=== PATIENT | male | born 1990 | race Caucasian/White ===

== ENCOUNTER 2017-09-08 20:50 | Inpatient (IN) | payer MEDICAID ==
[~2017-09-08] VITALS: Ht 172.7 cm; Wt 52.6 kg
[2017-09-08 21:41] LABS: microscopic required? NO
[2017-09-08 21:45] LABS: PLATELET COUNT 391 x10^3mcL (130-400); RED CELL DISTRIBUTION WIDTH 12.1 % (11.5-14.5)
[2017-09-08 21:48] LABS: BASOPHIL % 2.3 % (0-2)
[2017-09-08 21:50] LABS: UA SPECIFIC GRAVITY <=1.005 (1.005-1.035); urine erythrocyte NEGATIVE (NEGATIVE)
[2017-09-08 21:56] LABS: AMPHETAMINE QUAL UR NONE DETECTED (NEG <=1000)
[2017-09-08 22:09] LABS: ALKALINE PHOSPHATASE 169 U/L (46-116); ALT/SGPT 17 U/L (16-63); AST/SGOT 12 U/L (15-37); BILIRUBIN TOTAL 0.22 mg/dL (0.20-1.00); CALCIUM 8.2 mg/dL (8.5-10.1); CARBON DIOXIDE 25.9 mmol/L (21-32); CHLORIDE SERUM 98 mmol/L (98-107); CREATININE SERUM 0.9 mg/dL (0.7-1.3); GFR1 > 60 mL/min; POTASSIUM SERUM 3.5 mmol/L (3.5-5.1); SODIUM SERUM 128 mmol/L (136-145); TOTAL PROTEIN, SERUM 6.4 g/dL (6.4-8.2)
[2017-09-08 22:11] LABS: ALBUMIN 2.5 g/dL (3.4-5.0)
[2017-09-08 22:12] LABS: GLUCOSE SERUM 558 mg/dL (74-106)
[2017-09-08] MEDS ORDERED: HUMALOG100 U/ML SC (23:38)
[2017-09-09 00:41] VITALS: BP 129/87
[2017-09-09 02:26] LABS: PHOSPHOROUS 4.5 mg/dL (2.5-4.9)
[2017-09-09 02:40] LABS: FREE T4 0.91 ng/dL (0.76-1.46); FREE THYROXINE INDEX 2.1 ug/dL (1.4-4.5); T4(THYROXINE) 5.3 ug/dL (4.7-13.3)
[2017-09-09 03:09] LABS: T3 TOTAL 0.5 ng/mL
[2017-09-09 04:56] VITALS: BP 133/83
[2017-09-09 06:55] LABS: IRON 93 ug/dL (65-170)
[2017-09-09 06:57] LABS: TOTAL IRON BINDING CAPACITY 218 ug/dL (250-450)
[2017-09-09 07:49] LABS: RED BLOOD CELLS 3.94 M/mm3 (4.52-5.90)
[2017-09-09 08:55] VITALS: BP 124/68
[2017-09-09 12:23] VITALS: BP 123/81
[2017-09-09 16:16] VITALS: BP 128/93
[2017-09-09 20:37] VITALS: BP 119/76
[2017-09-10 05:37] VITALS: BP 120/72
[2017-09-10 06:21] LABS: CALCIUM 8.5 mg/dL (8.5-10.1); CARBON DIOXIDE 28.1 mmol/L (21-32); CHLORIDE SERUM 103 mmol/L (98-107); CREATININE SERUM 0.6 mg/dL (0.7-1.3); GFR1 > 60 mL/min; GLUCOSE SERUM 236 mg/dL (74-106); PHOSPHOROUS 4.2 mg/dL (2.5-4.9); POTASSIUM SERUM 3.9 mmol/L (3.5-5.1); SODIUM SERUM 137 mmol/L (136-145)
[2017-09-10 06:22] LABS: BASOPHIL % 0.4 % (0-2); PLATELET COUNT 380 x10^3mcL (130-400); RED CELL DISTRIBUTION WIDTH 12.2 % (11.5-14.5)
[2017-09-10 09:07] VITALS: BP 119/82
[2017-09-10 14:05] VITALS: BP 123/73
[2017-09-10 17:07] VITALS: BP 126/70
[2017-09-10 22:10] VITALS: BP 116/72
[2017-09-11 05:50] VITALS: BP 122/74
[2017-09-11 06:22] LABS: BASOPHIL % 0.5 % (0-2); RED CELL DISTRIBUTION WIDTH 12.1 % (11.5-14.5)
[2017-09-11 06:38] LABS: PLATELET COUNT 414 x10^3mcL (130-400)
[2017-09-11 06:46] LABS: CALCIUM 8.3 mg/dL (8.5-10.1); CARBON DIOXIDE 26.2 mmol/L (21-32); CHLORIDE SERUM 107 mmol/L (98-107); CREATININE SERUM 0.5 mg/dL (0.7-1.3); GFR1 > 60 mL/min; GLUCOSE SERUM 193 mg/dL (74-106); PHOSPHOROUS 4.5 mg/dL (2.5-4.9); POTASSIUM SERUM 3.9 mmol/L (3.5-5.1); SODIUM SERUM 138 mmol/L (136-145)
[2017-09-11 14:25] VITALS: BP 148/88
[2017-09-11 17:50] VITALS: BP 125/79
[2017-09-11 20:55] VITALS: BP 127/82
[2017-09-12 05:47] VITALS: BP 127/81
[2017-09-12 06:22] LABS: BASOPHIL % 0.5 % (0-2)
[2017-09-12 06:26] LABS: PLATELET COUNT 406 x10^3mcL (130-400)
[2017-09-12 06:31] LABS: CALCIUM 8.4 mg/dL (8.5-10.1); CARBON DIOXIDE 28.6 mmol/L (21-32); CHLORIDE SERUM 105 mmol/L (98-107); CREATININE SERUM 0.4 mg/dL (0.7-1.3); GFR1 > 60 mL/min; GLUCOSE SERUM 225 mg/dL (74-106); PHOSPHOROUS 4.4 mg/dL (2.5-4.9); POTASSIUM SERUM 3.7 mmol/L (3.5-5.1); SODIUM SERUM 138 mmol/L (136-145)
[2017-09-12 09:38] VITALS: BP 123/81
[2017-09-12 13:00] VITALS: BP 144/71
[2017-09-12 17:41] VITALS: BP 137/91
[2017-09-13 06:08] LABS: BASOPHIL % 0.9 % (0-2); RED CELL DISTRIBUTION WIDTH 12.5 % (11.5-14.5)
[2017-09-13 06:15] VITALS: BP 129/88
[2017-09-13 06:24] LABS: PLATELET COUNT 441 x10^3mcL (130-400)
[2017-09-13 06:37] LABS: CALCIUM 8.3 mg/dL (8.5-10.1); CARBON DIOXIDE 30.2 mmol/L (21-32); CHLORIDE SERUM 104 mmol/L (98-107); CREATININE SERUM 0.6 mg/dL (0.7-1.3); GFR1 > 60 mL/min; GLUCOSE SERUM 213 mg/dL (74-106); PHOSPHOROUS 4.7 mg/dL (2.5-4.9); POTASSIUM SERUM 3.9 mmol/L (3.5-5.1); SODIUM SERUM 137 mmol/L (136-145)
[2017-09-13 08:00] VITALS: BP 130/86
[2017-09-13 10:20] VITALS: Ht 172.7 cm; Wt 52.6 kg
[2017-09-13 12:05] VITALS: BP 114/76
[2017-09-13 16:38] VITALS: BP 135/88
[2017-09-13 21:38] VITALS: BP 131/84
[2017-09-14 08:23] VITALS: BP 129/78
[2017-09-14 08:36] LABS: CALCIUM 8.9 mg/dL (8.5-10.1); CHLORIDE SERUM 105 mmol/L (98-107); CREATININE SERUM 0.5 mg/dL (0.7-1.3); GFR1 > 60 mL/min; GLUCOSE SERUM 118 mg/dL (74-106); POTASSIUM SERUM 4.1 mmol/L (3.5-5.1); SODIUM SERUM 139 mmol/L (136-145)
[2017-09-14 12:16] VITALS: BP 123/80
[2017-09-14 13:18] LABS: APPEARANCE CSF CLEAR; COLOR CSF COLORLESS; RBC CSF 0 /cumm (0); WBC CSF 2 /cumm (0-5)
[2017-09-14 13:20] LABS: TOTAL PROTEIN CSF 30 mg/dL (15-45)
[2017-09-14 16:26] VITALS: BP 127/81
[2017-09-14 21:09] VITALS: BP 127/65
[2017-09-15 05:25] VITALS: BP 120/74
[2017-09-15 06:08] LABS: BASOPHIL % 0.8 % (0-2); RED CELL DISTRIBUTION WIDTH 12.3 % (11.5-14.5)
[2017-09-15 06:35] LABS: PLATELET COUNT 528 x10^3mcL (130-400)
[2017-09-15 06:47] LABS: CALCIUM 9.3 mg/dL (8.5-10.1); CARBON DIOXIDE 27.2 mmol/L (21-32); CHLORIDE SERUM 104 mmol/L (98-107); CREATININE SERUM 0.6 mg/dL (0.7-1.3); GFR1 > 60 mL/min; GLUCOSE SERUM 153 mg/dL (74-106); MAGNESIUM 2.1 mg/dL (1.8-2.4); PHOSPHOROUS 5.3 mg/dL (2.5-4.9); POTASSIUM SERUM 4.1 mmol/L (3.5-5.1); SODIUM SERUM 141 mmol/L (136-145)
[2017-09-15 09:01] VITALS: BP 127/83
[2017-09-15 11:56] VITALS: BP 119/80
[2017-09-15 16:39] VITALS: BP 128/79
[2017-09-15 22:20] VITALS: BP 110/70
[2017-09-16 05:31] VITALS: BP 116/74
[2017-09-16 06:13] LABS: BASOPHIL % 0.6 % (0-2); RED CELL DISTRIBUTION WIDTH 12.4 % (11.5-14.5)
[2017-09-16 06:42] LABS: CALCIUM 9.3 mg/dL (8.5-10.1); CARBON DIOXIDE 28.8 mmol/L (21-32); CHLORIDE SERUM 102 mmol/L (98-107); CREATININE SERUM 0.6 mg/dL (0.7-1.3); GFR1 > 60 mL/min; GLUCOSE SERUM 154 mg/dL (74-106); POTASSIUM SERUM 4.6 mmol/L (3.5-5.1); SODIUM SERUM 138 mmol/L (136-145)
[2017-09-16 06:47] LABS: PLATELET COUNT 526 x10^3mcL (130-400)
[2017-09-16 09:40] VITALS: BP 120/75
[2017-09-16 13:33] VITALS: BP 117/72
[2017-09-16 17:53] VITALS: BP 120/65
[2017-09-16 21:51] VITALS: BP 112/73
[2017-09-17 05:48] VITALS: BP 119/75
[2017-09-17 06:06] LABS: BASOPHIL % 0.5 % (0-2); RED CELL DISTRIBUTION WIDTH 12.3 % (11.5-14.5)
[2017-09-17 06:12] LABS: CALCIUM 9.3 mg/dL (8.5-10.1); CHLORIDE SERUM 100 mmol/L (98-107); CREATININE SERUM 0.6 mg/dL (0.7-1.3); GFR1 > 60 mL/min; GLUCOSE SERUM 184 mg/dL (74-106); PHOSPHOROUS 4.8 mg/dL (2.5-4.9); SODIUM SERUM 130 mmol/L (136-145)
[2017-09-17 06:29] LABS: PLATELET COUNT 535 x10^3mcL (130-400)
[2017-09-17 09:23] VITALS: BP 99/56
[2017-09-17 14:22] VITALS: BP 106/63
[2017-09-17 17:34] VITALS: BP 106/62
[2017-09-17 20:38] VITALS: BP 101/56; BP 125/70
[2017-09-18 06:18] VITALS: BP 99/62
[2017-09-18 07:17] LABS: BASOPHIL % 0.7 % (0-2); RED CELL DISTRIBUTION WIDTH 12.5 % (11.5-14.5)
[2017-09-18 07:24] LABS: PLATELET COUNT 486 x10^3mcL (130-400)
[2017-09-18 07:30] LABS: CALCIUM 9.1 mg/dL (8.5-10.1); CARBON DIOXIDE 29.4 mmol/L (21-32); CHLORIDE SERUM 103 mmol/L (98-107); CREATININE SERUM 0.6 mg/dL (0.7-1.3); GFR1 > 60 mL/min; GLUCOSE SERUM 185 mg/dL (74-106); MAGNESIUM 2.1 mg/dL (1.8-2.4); PHOSPHOROUS 4.8 mg/dL (2.5-4.9); POTASSIUM SERUM 4.2 mmol/L (3.5-5.1); SODIUM SERUM 135 mmol/L (136-145)
[2017-09-18 09:06] VITALS: BP 105/65
[2017-09-18 17:29] VITALS: BP 109/70
[2017-09-18 20:23] VITALS: BP 116/77
[2017-09-19 05:10] VITALS: BP 98/54
[2017-09-19 06:52] LABS: BASOPHIL % 0.9 % (0-2); RED CELL DISTRIBUTION WIDTH 12.4 % (11.5-14.5)
[2017-09-19 07:00] LABS: PLATELET COUNT 495 x10^3mcL (130-400)
[2017-09-19 07:22] LABS: CALCIUM 8.8 mg/dL (8.5-10.1); CARBON DIOXIDE 26.9 mmol/L (21-32); CHLORIDE SERUM 104 mmol/L (98-107); CREATININE SERUM 0.7 mg/dL (0.7-1.3); GFR1 > 60 mL/min; GLUCOSE SERUM 180 mg/dL (74-106); PHOSPHOROUS 4.9 mg/dL (2.5-4.9); SODIUM SERUM 138 mmol/L (136-145)
[2017-09-19 08:55] VITALS: BP 127/61
[2017-09-19 17:04] VITALS: BP 132/66
[2017-09-19 21:17] VITALS: BP 136/77
[2017-09-20 05:29] VITALS: BP 107/71
[2017-09-20 06:11] LABS: BASOPHIL % 0.6 % (0-2); RED CELL DISTRIBUTION WIDTH 13.1 % (11.5-14.5)
[2017-09-20 06:35] LABS: CALCIUM 9.4 mg/dL (8.5-10.1); CARBON DIOXIDE 29.6 mmol/L (21-32); CHLORIDE SERUM 103 mmol/L (98-107); CREATININE SERUM 0.7 mg/dL (0.7-1.3); GFR1 > 60 mL/min; GLUCOSE SERUM 149 mg/dL (74-106); POTASSIUM SERUM 4.8 mmol/L (3.5-5.1); SODIUM SERUM 136 mmol/L (136-145)
[2017-09-20 07:12] LABS: PLATELET COUNT 533 x10^3mcL (130-400)
[2017-09-20 09:50] VITALS: BP 124/75
[2017-09-20 16:40] VITALS: BP 111/60
[2017-09-20 22:06] VITALS: BP 121/65
[2017-09-21 05:59] VITALS: BP 130/76
[2017-09-21 09:55] VITALS: BP 128/69
[2017-09-21 17:48] VITALS: BP 117/71
[2017-09-21 21:22] VITALS: BP 137/82
[2017-09-22 06:10] VITALS: BP 131/79
[2017-09-22 09:32] VITALS: BP 126/67
[2017-09-22 12:41] VITALS: BP 129/70
[2017-09-22 18:20] VITALS: BP 130/83
[2017-09-22 21:14] VITALS: BP 130/73
[2017-09-23 05:41] VITALS: BP 121/82
[2017-09-23 06:20] LABS: BASOPHIL % 0.5 % (0-2); RED CELL DISTRIBUTION WIDTH 13.1 % (11.5-14.5)
[2017-09-23 06:30] LABS: CALCIUM 8.7 mg/dL (8.5-10.1); CARBON DIOXIDE 25.3 mmol/L (21-32); CHLORIDE SERUM 101 mmol/L (98-107); CREATININE SERUM 0.8 mg/dL (0.7-1.3); GFR1 > 60 mL/min; GLUCOSE SERUM 306 mg/dL (74-106); MAGNESIUM 1.9 mg/dL (1.8-2.4); PHOSPHOROUS 4.3 mg/dL (2.5-4.9); POTASSIUM SERUM 4.3 mmol/L (3.5-5.1); SODIUM SERUM 136 mmol/L (136-145)
[2017-09-23 06:31] LABS: PLATELET COUNT 431 x10^3mcL (130-400)
[2017-09-23 08:43] VITALS: BP 138/81
[2017-09-23 14:00] VITALS: BP 139/84
[2017-09-23 18:15] VITALS: BP 123/69
[2017-09-23 21:14] VITALS: BP 133/78
[2017-09-24 04:57] VITALS: BP 131/76
[2017-09-24 06:07] LABS: BASOPHIL % 0.6 % (0-2); RED CELL DISTRIBUTION WIDTH 13.3 % (11.5-14.5)
[2017-09-24 06:13] LABS: CALCIUM 9.4 mg/dL (8.5-10.1); CARBON DIOXIDE 25.7 mmol/L (21-32); CHLORIDE SERUM 101 mmol/L (98-107); CREATININE SERUM 0.6 mg/dL (0.7-1.3); GFR1 > 60 mL/min; GLUCOSE SERUM 239 mg/dL (74-106); POTASSIUM SERUM 4.4 mmol/L (3.5-5.1); SODIUM SERUM 135 mmol/L (136-145)
[2017-09-24 06:48] LABS: PLATELET COUNT 454 x10^3mcL (130-400)
[2017-09-24 09:56] VITALS: BP 129/73
[2017-09-24 13:52] VITALS: BP 128/70
[2017-09-24 16:55] VITALS: BP 109/72
[2017-09-24 21:14] VITALS: BP 126/71
[2017-09-25 05:52] VITALS: BP 138/65
[2017-09-25 06:02] LABS: BASOPHIL % 0.8 % (0-2); RED CELL DISTRIBUTION WIDTH 13.2 % (11.5-14.5)
[2017-09-25 06:20] LABS: CALCIUM 9.4 mg/dL (8.5-10.1); CARBON DIOXIDE 29.6 mmol/L (21-32); CHLORIDE SERUM 104 mmol/L (98-107); CREATININE SERUM 0.5 mg/dL (0.7-1.3); GFR1 > 60 mL/min; GLUCOSE SERUM 87 mg/dL (74-106); MAGNESIUM 2.2 mg/dL (1.8-2.4); PHOSPHOROUS 5.5 mg/dL (2.5-4.9); POTASSIUM SERUM 3.8 mmol/L (3.5-5.1); SODIUM SERUM 140 mmol/L (136-145)
[2017-09-25 06:24] LABS: PLATELET COUNT 420 x10^3mcL (130-400)
[2017-09-25 09:58] VITALS: BP 114/62
[2017-09-25 13:30] VITALS: BP 138/67
[2017-09-25 17:36] VITALS: BP 129/78
[2017-09-25 21:16] VITALS: BP 126/78
[2017-09-26 04:45] VITALS: BP 125/69
[2017-09-26 09:12] VITALS: BP 141/94
[2017-09-26 12:59] VITALS: BP 124/82
[2017-09-26 17:07] VITALS: BP 125/43
[2017-09-26 21:52] VITALS: BP 136/82
[2017-09-27 05:44] VITALS: BP 136/80
[2017-09-27 08:41] VITALS: BP 142/85
[2017-09-27 13:06] VITALS: BP 140/82
[2017-09-27 17:46] VITALS: BP 136/83
[2017-09-27 20:34] VITALS: BP 128/86
[2017-09-28 05:45] VITALS: BP 123/56
[2017-09-28 06:05] LABS: BASOPHIL % 0.4 % (0-2); PLATELET COUNT 350 x10^3mcL (130-400); RED CELL DISTRIBUTION WIDTH 13.4 % (11.5-14.5)
[2017-09-28 06:40] LABS: CARBON DIOXIDE 27.4 mmol/L (21-32); CHLORIDE SERUM 106 mmol/L (98-107); CREATININE SERUM 0.6 mg/dL (0.7-1.3); GFR1 > 60 mL/min; GLUCOSE SERUM 135 mg/dL (74-106); MAGNESIUM 2.1 mg/dL (1.8-2.4); PHOSPHOROUS 3.5 mg/dL (2.5-4.9); SODIUM SERUM 141 mmol/L (136-145)
[2017-09-28 09:05] VITALS: BP 113/56
[2017-09-28 17:30] VITALS: BP 139/75
[2017-09-28 21:26] VITALS: BP 132/67
[2017-09-29 05:35] VITALS: BP 143/80
[2017-09-29 06:18] LABS: BASOPHIL % 0.4 % (0-2); PLATELET COUNT 301 x10^3mcL (130-400); RED CELL DISTRIBUTION WIDTH 13.7 % (11.5-14.5)
[2017-09-29 06:21] LABS: CALCIUM 8.8 mg/dL (8.5-10.1); CARBON DIOXIDE 27.2 mmol/L (21-32); CHLORIDE SERUM 101 mmol/L (98-107); CREATININE SERUM 0.7 mg/dL (0.7-1.3); GFR1 > 60 mL/min; GLUCOSE SERUM 332 mg/dL (74-106); POTASSIUM SERUM 4.3 mmol/L (3.5-5.1); SODIUM SERUM 135 mmol/L (136-145)
[2017-09-29 08:55] VITALS: BP 149/85
[2017-09-29 16:50] VITALS: BP 135/81
[2017-09-29 21:23] VITALS: BP 114/67
[2017-09-30 05:14] VITALS: BP 111/56
[2017-09-30 06:17] LABS: CALCIUM 8.9 mg/dL (8.5-10.1); CARBON DIOXIDE 25.7 mmol/L (21-32); CHLORIDE SERUM 105 mmol/L (98-107); CREATININE SERUM 0.6 mg/dL (0.7-1.3); GFR1 > 60 mL/min; GLUCOSE SERUM 232 mg/dL (74-106); POTASSIUM SERUM 4.1 mmol/L (3.5-5.1); SODIUM SERUM 138 mmol/L (136-145)
[2017-09-30 09:34] VITALS: BP 142/79
[2017-09-30 13:28] VITALS: BP 135/83
[2017-09-30 17:26] VITALS: BP 99/54
[2017-09-30 21:56] VITALS: BP 134/84
[2017-10-01 05:59] VITALS: BP 123/84
[2017-10-01 06:29] LABS: CALCIUM 8.7 mg/dL (8.5-10.1); CARBON DIOXIDE 27.2 mmol/L (21-32); CHLORIDE SERUM 100 mmol/L (98-107); CREATININE SERUM 0.7 mg/dL (0.7-1.3); GFR1 > 60 mL/min; GLUCOSE SERUM 308 mg/dL (74-106); POTASSIUM SERUM 4.3 mmol/L (3.5-5.1); SODIUM SERUM 136 mmol/L (136-145)
[2017-10-01 09:58] VITALS: BP 142/65
[2017-10-01 17:15] VITALS: BP 144/86
[2017-10-01 20:35] VITALS: BP 157/85
[2017-10-02 05:34] VITALS: BP 122/69
[2017-10-02 06:29] LABS: CALCIUM 9.5 mg/dL (8.5-10.1); CARBON DIOXIDE 30.7 mmol/L (21-32); CHLORIDE SERUM 101 mmol/L (98-107); CREATININE SERUM 0.6 mg/dL (0.7-1.3); GFR1 > 60 mL/min; GLUCOSE SERUM 222 mg/dL (74-106); POTASSIUM SERUM 4.3 mmol/L (3.5-5.1); SODIUM SERUM 139 mmol/L (136-145)
[2017-10-02 09:40] VITALS: BP 131/69
[2017-10-02 17:38] VITALS: BP 128/68
[2017-10-02 20:39] VITALS: BP 139/78
[2017-10-03 05:34] VITALS: BP 139/77
[2017-10-03 09:56] VITALS: BP 133/81
[2017-10-03 16:58] VITALS: BP 153/92
[2017-10-03 20:56] VITALS: BP 148/84
[2017-10-04 05:18] VITALS: BP 136/74
[2017-10-04 09:40] VITALS: BP 153/96
[2017-10-04 21:29] VITALS: BP 150/92
[2017-10-05 04:56] VITALS: BP 145/91
[2017-10-05 06:07] LABS: BASOPHIL % 0.6 % (0-2); RED CELL DISTRIBUTION WIDTH 13.7 % (11.5-14.5)
[2017-10-05 06:15] LABS: CALCIUM 9.5 mg/dL (8.5-10.1); CARBON DIOXIDE 30.8 mmol/L (21-32); CHLORIDE SERUM 98 mmol/L (98-107); CREATININE SERUM 0.8 mg/dL (0.7-1.3); GFR1 > 60 mL/min; GLUCOSE SERUM 349 mg/dL (74-106); MAGNESIUM 2.2 mg/dL (1.8-2.4); PHOSPHOROUS 4.7 mg/dL (2.5-4.9); POTASSIUM SERUM 4.5 mmol/L (3.5-5.1); SODIUM SERUM 135 mmol/L (136-145)
[2017-10-05 06:55] LABS: PLATELET COUNT 482 x10^3mcL (130-400)
[2017-10-05 09:14] VITALS: BP 141/91
[2017-10-05 13:11] VITALS: BP 152/100
[2017-10-05 17:17] VITALS: BP 120/68
[2017-10-05 22:08] VITALS: BP 139/79
[2017-10-06 05:39] VITALS: BP 115/65
[2017-10-06 06:38] LABS: BASOPHIL % 0.4 % (0-2); RED CELL DISTRIBUTION WIDTH 13.8 % (11.5-14.5)
[2017-10-06 06:44] LABS: CALCIUM 9.2 mg/dL (8.5-10.1); CARBON DIOXIDE 31.4 mmol/L (21-32); CHLORIDE SERUM 98 mmol/L (98-107); CREATININE SERUM 0.9 mg/dL (0.7-1.3); GFR1 > 60 mL/min; GLUCOSE SERUM 422 mg/dL (74-106); POTASSIUM SERUM 4.9 mmol/L (3.5-5.1); SODIUM SERUM 134 mmol/L (136-145)
[2017-10-06 06:45] LABS: PLATELET COUNT 506 x10^3mcL (130-400)
[2017-10-06 09:18] VITALS: BP 143/86
[2017-10-06 18:48] VITALS: BP 146/89
[2017-10-06 22:39] VITALS: BP 132/73
[2017-10-07 05:58] VITALS: BP 129/73
[2017-10-07 09:12] VITALS: BP 132/70
[2017-10-07 17:07] VITALS: BP 157/92
[2017-10-07 21:47] VITALS: BP 137/78
[2017-10-08 04:58] VITALS: BP 128/77
[2017-10-08 09:34] VITALS: BP 116/68
[2017-10-08 17:11] VITALS: BP 138/90
[2017-10-08 20:51] VITALS: BP 133/92
[2017-10-09 06:15] VITALS: BP 126/84
[2017-10-09 10:14] VITALS: BP 149/98
[2017-10-09 17:38] VITALS: BP 118/71
== END 2017-10-09 20:32 | disposition left against medical advice (07) | DRG 50 ==
LOC: ED 20:50 → DU 23:48 → MU 23:48 → DU 09-09 00:41 → MU 09-17 17:09 → DU 09-22 16:16 → MU 09-27 18:06
PROVIDERS: Emergency Medicine; Family Medicine; Family Medicine Sports Medicine; ADMIT Family Medicine
PROC: 009U3ZX Drainage of Spinal Canal, Percutaneous Approach, Diagnostic (ICD-10-PCS; principal; 2017-09-14)
DX: B00.4 Herpesviral encephalitis (principal); N17.0 Acute kidney failure with tubular necrosis; E43 Unspecified severe protein-calorie malnutrition; E87.2 Acidosis; D68.69 Other thrombophilia; R78.81 Bacteremia; R56.9 Unspecified convulsions; E10.65 Type 1 diabetes mellitus with hyperglycemia; E87.1 Hypo-osmolality and hyponatremia; E83.51 Hypocalcemia; F25.0 Schizoaffective disorder, bipolar type; F15.251 Other stimulant dependence with stimulant-induced psychotic disorder with hallucinations; F12.251 Cannabis dependence with psychotic disorder with hallucinations; L05.01 Pilonidal cyst with abscess; T82.7XXA Infection and inflammatory reaction due to other cardiac and vascular devices, implants and grafts, initial encounter; L03.114 Cellulitis of left upper limb; B95.61 Methicillin susceptible Staphylococcus aureus infection as the cause of diseases classified elsewhere; D63.8 Anemia in other chronic diseases classified elsewhere; E78.2 Mixed hyperlipidemia; E86.0 Dehydration; F17.210 Nicotine dependence, cigarettes, uncomplicated; F10.20 Alcohol dependence, uncomplicated; Z68.1 Body mass index [BMI] 19.9 or less, adult; Z79.4 Long term (current) use of insulin; Z91.14 Patient's other noncompliance with medication regimen; Z59.0 Homelessness; Y84.8 Other medical procedures as the cause of abnormal reaction of the patient, or of later complication, without mention of misadventure at the time of the procedure; Y92.230 Patient room in hospital as the place of occurrence of the external cause
CPT/HCPCS: 62272; 82962; 83880; 84439; 86788; 86789; 90658; A9577; G0480; J0133; J0694; J0696; J1100; J1200; J1815; J1885; J2060; J2405; J3411; J3490; J7030; J7040; J7050; Q0092; Q9967

== ENCOUNTER 2017-10-11 18:19 | Observation (INO) | payer OTHER ==
[~2017-10-11] VITALS: Ht 172.7 cm; Wt 66.4 kg
[~2017-10-11 18:19] MED LIST: HUMALOG100 U/ML SC
[2017-10-11 19:15] LABS: BASOPHIL % 0.4 % (0-2); RED CELL DISTRIBUTION WIDTH 13.8 % (11.5-14.5)
[2017-10-11 19:30] LABS: PLATELET COUNT 523 x10^3mcL (130-400)
[2017-10-11 19:38] LABS: FREE T4 1.09 ng/dL (0.76-1.46); FREE THYROXINE INDEX 2.2 ug/dL (1.4-4.5); T4(THYROXINE) 5.7 ug/dL (4.7-13.3)
[2017-10-11 19:41] LABS: T3 TOTAL 1.06 ng/mL
[2017-10-11 19:44] LABS: ALBUMIN 3.3 g/dL (3.4-5.0); ALKALINE PHOSPHATASE 133 U/L (46-116); ALT/SGPT 47 U/L (16-63); AST/SGOT 18 U/L (15-37); BILIRUBIN TOTAL 0.23 mg/dL (0.20-1.00); CALCIUM 8.7 mg/dL (8.5-10.1); CARBON DIOXIDE 25.3 mmol/L (21-32); CHLORIDE SERUM 97 mmol/L (98-107); CK-MB < 0.5 ng/mL (0-3.6); CREATINE KINASE 47 U/L (39-308); GFR1 > 60 mL/min; POTASSIUM SERUM 4.6 mmol/L (3.5-5.1); SODIUM SERUM 132 mmol/L (136-145); TOTAL PROTEIN, SERUM 7.7 g/dL (6.4-8.2)
[2017-10-11 19:47] LABS: GLUCOSE SERUM 527 mg/dL (74-106)
[2017-10-11 19:48] LABS: C REACTIVE PROTEIN 0.2 mg/dL (<=0.9)
[2017-10-11 20:06] LABS: microscopic required? NO
[2017-10-11 20:18] LABS: UA SPECIFIC GRAVITY 1.015 (1.005-1.035); urine erythrocyte NEGATIVE (NEGATIVE)
[2017-10-11 20:24] LABS: ERYTHROCYTE SED RATE 41 mm/hr (0-15)
[2017-10-11 20:27] LABS: AMPHETAMINE QUAL UR NONE DETECTED (NEG <=1000)
[2017-10-11] MEDS ORDERED: LANTUS SOLOS100 U/M1 (21:05)
[2017-10-11 21:35] VITALS: BP 108/55
[2017-10-11 21:39] VITALS: BP 108/85
[2017-10-11 21:53] LABS: MAGNESIUM 2.2 mg/dL (1.8-2.4); PHOSPHOROUS 4.6 mg/dL (2.5-4.9)
[2017-10-12 05:37] VITALS: BP 99/54
[2017-10-12 07:02] LABS: BASOPHIL % 0.7 % (0-2); RED CELL DISTRIBUTION WIDTH 13.5 % (11.5-14.5)
[2017-10-12 07:03] LABS: PLATELET COUNT 460 x10^3mcL (130-400)
[2017-10-12 07:17] LABS: CALCIUM 8.6 mg/dL (8.5-10.1); CARBON DIOXIDE 26.4 mmol/L (21-32); CHLORIDE SERUM 109 mmol/L (98-107); CREATININE SERUM 0.5 mg/dL (0.7-1.3); GFR1 > 60 mL/min; GLUCOSE SERUM 110 mg/dL (74-106); POTASSIUM SERUM 3.5 mmol/L (3.5-5.1); SODIUM SERUM 141 mmol/L (136-145)
[2017-10-12 07:39] VITALS: BP 116/68
[2017-10-12 16:57] VITALS: BP 97/47
[2017-10-12] MEDS ORDERED: FER300 PO (19:05)
[2017-10-12] MEDS ORDERED: BG FS (20:45)
[2017-10-12] MEDS ORDERED: LEVEMIR100 U/M1 SQ (20:45)
[2017-10-12] MEDS ORDERED: HUMULIN R100 U/1 M1 SC (21:05)
[2017-10-12] MEDS ORDERED: ABILIFY5 M1 PO (21:06)
[2017-10-12] MEDS ORDERED: QUETIAPINE FUMA25 M1 PO (21:06)
== END 2017-10-12 20:40 | disposition left against medical advice (07) | DRG 420 ==
LOC: ED 18:19 → MU 20:41 → DU 20:41 → EDBEDREQ 20:42 → DU 21:22 → MU 10-12 11:03
PROVIDERS: Specialist; ADMIT Family Medicine Sports Medicine
DX: E11.00 Type 2 diabetes mellitus with hyperosmolarity without nonketotic hyperglycemic-hyperosmolar coma (NKHHC) (principal); N17.0 Acute kidney failure with tubular necrosis; D68.69 Other thrombophilia; E44.0 Moderate protein-calorie malnutrition; F20.9 Schizophrenia, unspecified; E11.59 Type 2 diabetes mellitus with other circulatory complications; E87.1 Hypo-osmolality and hyponatremia; D63.8 Anemia in other chronic diseases classified elsewhere; F12.10 Cannabis abuse, uncomplicated; F15.10 Other stimulant abuse, uncomplicated; Z79.4 Long term (current) use of insulin; Z59.0 Homelessness; Z68.22 Body mass index [BMI] 22.0-22.9, adult
CPT/HCPCS: 36600; 82962; 83880; 84439; G0378; G0480; J1630; J1815; J2060; J7030

== ENCOUNTER 2019-04-02 10:32 | Emergency (ER) | payer MEDICAID ==
[~2019-04-02] VITALS: Ht 167.6 cm; Wt 77.6 kg
[~2019-04-02 10:32] MED LIST changes: +ABILIFY5 M1 PO; +BG FS; +FER300 PO; +HUMULIN R100 U/1 M1 SC; +LANTUS SOLOS100 U/M1; +LEVEMIR100 U/M1 SQ; +QUETIAPINE FUMA25 M1 PO
[2019-04-02 10:40] VITALS: Ht 167.6 cm; Wt 77.6 kg
[2019-04-02 10:53] VITALS: BP 129/74
[2019-04-02 11:15] LABS: BASOPHIL % 0.5 % (0-2); PLATELET COUNT 331 x10^3mcL (130-400); RED CELL DISTRIBUTION WIDTH 12.3 % (11.5-14.5)
[2019-04-02 11:22] LABS: CALCIUM 9.2 mg/dL (8.5-10.1); CARBON DIOXIDE 25.5 mmol/L (21-32); CHLORIDE SERUM 100 mmol/L (98-107); CREATININE SERUM 0.8 mg/dL (0.7-1.3); GFR1 > 60 mL/min; GLUCOSE SERUM 307 mg/dL (74-106); POTASSIUM SERUM 4.5 mmol/L (3.5-5.1); SODIUM SERUM 133 mmol/L (136-145)
[2019-04-02 11:26] LABS: ALBUMIN 3.4 g/dL (3.4-5.0); ALKALINE PHOSPHATASE 101 U/L (46-116); ALT/SGPT 21 U/L (16-63); AST/SGOT 10 U/L (15-37); BILIRUBIN TOTAL 0.37 mg/dL (0.20-1.00); TOTAL PROTEIN, SERUM 7.2 g/dL (6.4-8.2)
== END 2019-04-02 12:15 | disposition home or self-care (01) ==
LOC: ED 10:32
PROVIDERS: Emergency Medicine
DX: E10.40 Type 1 diabetes mellitus with diabetic neuropathy, unspecified (principal); E10.65 Type 1 diabetes mellitus with hyperglycemia; F12.90 Cannabis use, unspecified, uncomplicated; Z79.4 Long term (current) use of insulin
CPT/HCPCS: 36415

== ENCOUNTER 2019-04-07 22:55 | Emergency (ER) | payer MEDICAID ==
[~2019-04-07] VITALS: Ht 170.2 cm; Wt 81.6 kg
[2019-04-07 23:04] VITALS: Ht 170.2 cm; Wt 81.6 kg
[2019-04-07 23:20] LABS: BASOPHIL % 0.6 % (0-2); PLATELET COUNT 349 x10^3mcL (130-400); RED CELL DISTRIBUTION WIDTH 12.3 % (11.5-14.5)
[2019-04-07 23:39] LABS: ALBUMIN 3.5 g/dL (3.4-5.0); ALKALINE PHOSPHATASE 102 U/L (46-116); ALT/SGPT 19 U/L (16-63); AST/SGOT 8 U/L (15-37); BILIRUBIN TOTAL 0.3 mg/dL (0.20-1.00); CALCIUM 8.8 mg/dL (8.5-10.1); CHLORIDE SERUM 96 mmol/L (98-107); CREATININE SERUM 0.9 mg/dL (0.7-1.3); GFR1 > 60 mL/min; POTASSIUM SERUM 4.2 mmol/L (3.5-5.1); SODIUM SERUM 130 mmol/L (136-145); TOTAL PROTEIN, SERUM 7.5 g/dL (6.4-8.2)
[2019-04-07 23:41] LABS: GLUCOSE SERUM 610 mg/dL (74-106)
[2019-04-08 03:09] VITALS: BP 128/78
[2019-04-08 03:21] LABS: AMPHETAMINE QUAL UR NONE DETECTED (See below)
== END 2019-04-08 03:09 | disposition short-term general hospital (02) ==
LOC: ED 22:55
PROVIDERS: Emergency Medicine
DX: E11.65 Type 2 diabetes mellitus with hyperglycemia (principal); G40.209 Localization-related (focal) (partial) symptomatic epilepsy and epileptic syndromes with complex partial seizures, not intractable, without status epilepticus
CPT/HCPCS: 82962; J1953; J2060; J7030; Q0092

== ENCOUNTER 2020-05-20 22:02 | Emergency (ER) | payer SELFPAY ==
[~2020-05-20] VITALS: Ht 165.1 cm; Wt 63.5 kg
[2020-05-20 22:15] VITALS: Ht 165.1 cm; Wt 63.5 kg
[2020-05-20 23:00] LABS: BASOPHIL % 0.6 % (0-2); PLATELET COUNT 294 x10^3mcL (130-400); RED CELL DISTRIBUTION WIDTH 11.8 % (11.5-14.5)
[2020-05-20 23:14] LABS: ALBUMIN 3.6 g/dL (3.4-5.0); ALKALINE PHOSPHATASE 151 U/L (46-116); ALT/SGPT 32 U/L (16-63); AST/SGOT 23 U/L (15-37); BILIRUBIN TOTAL 0.2 mg/dL (0.20-1.00); CALCIUM 8.4 mg/dL (8.5-10.1); CARBON DIOXIDE 18.1 mmol/L (21-32); CHLORIDE SERUM 99 mmol/L (98-107); CREATININE SERUM 0.9 mg/dL (0.7-1.3); GFR1 > 60 mL/min; POTASSIUM SERUM 3.7 mmol/L (3.5-5.1); SODIUM SERUM 135 mmol/L (136-145); TOTAL PROTEIN, SERUM 7.5 g/dL (6.4-8.2)
[2020-05-20 23:19] LABS: GLUCOSE SERUM 493 mg/dL (74-106)
[2020-05-20 23:34] LABS: AMPHETAMINE QUAL UR NONE DETECTED (See below)
[2020-05-21 00:55] VITALS: BP 119/73
== END 2020-05-21 00:55 | disposition home or self-care (01) ==
LOC: ED 22:02
PROVIDERS: Emergency Medicine
DX: F10.129 Alcohol abuse with intoxication, unspecified (principal); E11.65 Type 2 diabetes mellitus with hyperglycemia; Y90.8 Blood alcohol level of 240 mg/100 ml or more
CPT/HCPCS: 82962; G0480; Q0092